=== PATIENT | male | born 1955 | race Caucasian/White ===

== ENCOUNTER 2021-06-11 07:00 | Day surgery (SDC) | payer OTHER ==
[2021-06-09 12:44] VITALS: BMI 34.0
[~2021-06-11 07:00] MED LIST: LACTATED RINGERS 1,000 ML IV SCH; LIDOCAINE 1% (10MG/ML) FOR IV START INTRADERMA PRN
[2021-06-11 07:31] VITALS: RESP 16; TEMP 97.8
[2021-06-11 07:31] LABS: Glucose,Whole Blood 146 mg/dL (75-99)
[2021-06-11] MEDS ORDERED: PROPOFOL 10 MG/ML 20 ML VIAL IV ONE (07:32)
[2021-06-11] MEDS ORDERED: LIDOCAINE 1% INJ 10MG/ML (20 ML MDV) ONE (07:32)
--- NOTE | 2021-06-11 07:44 | P.PCN ---
Date of Procedure: 06/11/21 Procedure(s) Performed: BRIEF HISTORY: Patient is a 65-year-old, pleasant, 8 male scheduled for an upper endoscopy as a part of evaluation of intermittent dysphagia to solids for the last several months duration. His last EGD with dilation was performed 2 years ago and was noted to have a distal esophageal stricture PROCEDURE PERFORMED: Esophagogastroduodenoscopy with dilation. PREOPERATIVE DIAGNOSIS: Intermittent dysphagia to solids for the last 1 year duration. IV sedation per anesthesia. PROCEDURE: After informed consent was obtained, the patient was brought into the endoscopy unit. IV sedation was administered by Anesthesia under continuous monitoring. Initially the Olympus GIF-140 video endoscope was inserted into the mouth. Esophagus intubated without any difficulty. It was gradually advanced into the stomach and duodenum and carefully examined. The bulb and the second part of the duodenum appeared normal. The scope at this time was withdrawn to the stomach, adequately insufflated with air, and upon careful examination, mucosa of the antrum, body, cardia and the fundus appeared normal. The scope was then withdrawn into the esophagus. The GE junction was located at 39 cm from the incisors. Small sliding type hiatal hernia noted. There was a distal esophageal stricture identified. At this time I proceeded with balloon dilation using 15-18 mm TTS balloon. Suture was initially dilated to 15 mm and subsequently 16.5 mm sequentially for 60 seconds. At this time there was some oozing with mucosal tears noted and hence further dilation was not performed. The rest of the esophagus appeared normal. There were no erosions or ulcerations seen and the patient tolerated the procedure well. IMPRESSION: 1. Distal esophageal stricture status post balloon dilation using 15 and 16 TTS balloon as described above. 2. Small hiatal hernia. RECOMMENDATIONS: The findings of this examination were discussed with the patient as well as his family. He was advised to be on a clear liquid diet today. Advance his diet as tolerated tomorrow. Follow-up up in office if he has recurrent symptoms.
[2021-06-11 07:53] VITALS: BP 126/77
[2021-06-11 08:18] LABS: Glucose,Whole Blood 147 mg/dL (75-99)
[2021-06-11 08:20] VITALS: PULSE 74
== END 2021-06-11 08:40 | disposition home or self-care (01) ==
LOC: ORWHC2ENDO 07:00
PROVIDERS: ATTEND Internal Medicine Gastroenterology
DX: K22.2 Esophageal obstruction (principal); K44.9 Diaphragmatic hernia without obstruction or gangrene; I10 Essential (primary) hypertension; E78.5 Hyperlipidemia, unspecified; E07.9 Disorder of thyroid, unspecified; F41.9 Anxiety disorder, unspecified; K21.9 Gastro-esophageal reflux disease without esophagitis; Z98.42 Cataract extraction status, left eye; Z98.890 Other specified postprocedural states; Z97.2 Presence of dental prosthetic device (complete) (partial); Z79.82 Long term (current) use of aspirin; Z79.890 Hormone replacement therapy; Z79.4 Long term (current) use of insulin; Z79.899 Other long term (current) drug therapy
CPT/HCPCS: 43249; J2001; J2704; C1726